=== PATIENT | male | born 1955 | race Caucasian/White ===

== ENCOUNTER 2016-07-21 23:05 | Inpatient (IN) | payer BC ==
[~2016-07-21] VITALS: Ht 182.9 cm; Wt 89.5 kg
[2016-07-22] VITALS (9 sets, daily range): BP systolic 122–151; BP diastolic 74–88; PULSE 61–79; TEMP 36.3–36.9; O2SAT 93–100; Ht 182.9 cm; Wt 89.5 kg
[2016-07-22] MEDS ORDERED: SODIUM CHLORIDE 0.9% 1000ML 1,000 ML IV STA (00:15)
[2016-07-22] MEDS ORDERED: DIAZEPAM INJ 5 MG/ML 2 ML CARP IV STA (00:15)
--- NOTE | 2016-07-22 00:17 | EMERGENCY ROOM VISIT NOTE ---
History Report prepared by Adriane: Jesus Gilliland Under the Supervision of: Dr. Juan Carlos Mustafa M.D. First contact with patient: 23:55 Chief Complaint: DIZZY Stated Complaint: VOMITING, DIZZINESS Nursing Triage Summary: Patient arrived to ED via ALS for an acute onset of dizziness. Patient reports eating dinner around 1700 today, states that after dinner he became extremley dizzy and had n/v. States that it feels as though the room is spinning, worsened with movement. Patient denies any hx of vertigo. Patient was given 5 mg of valium and 4 mg of zofran pre-hospital, which helped the s/s briefly. History of Present Illness The patient is a 60 year old male who presents to the Emergency Room with complaints of persistent dizziness that started at approximately 1730 tonight. The patient was not feeling well prior to his dinner tonight. Approximately 30 minutes after dinner tonight he became dizzy and nauseous and started vomiting. He describes the dizziness as a room-spinning sensation, which is worse when his eyes are open. Two days ago he also had intermittent episodes of dizziness that only lasted about one minute each. He also notes some shortness of breath. The patient denies chest pain, abdominal pain, leg swelling, or weakness. The patient was given Valium and Zofran prior to arrival which did offer some relief. The patient denies any recent falls or head injuries. He denies any personal or family history of blood clots. He does have a family history of stroke. The patient traveled to [facility] recently. Source of History: patient Onset: 1730 tonight Position: other (global) Quality: other (dizziness) Timing: other (persistent) Modifying Factors (Relieving): other (Zofran, Valium) Associated Symptoms: + SOB, + nausea, + vomiting, No abdominal pain, No chest pain, No weakness Review of Systems See HPI for pertinent positives & negatives. A total of 10 systems reviewed and were otherwise negative. Past Medical & Surgical Medical Problems: (1) Dizziness (2) HLD (hyperlipidemia) Family History Stroke Social History Smoking Status: Never Smoker Housing Status: lives with family Current/Historical Medications Scheduled Acyclovir (Zovirax), 200 MG PO DAILY Atorvastatin (Lipitor), 10 MG PO HS Allergies Coded Allergies: No Known Allergies (Unverified , 4/6/17) Physical Exam Vital Signs Date Time Temp Pulse Resp B/P Pulse Ox O2 Delivery O2 Flow Rate FiO2 07/22/16 01:06 52 18 142/71 100 Nasal Cannula 2.0 07/21/16 23:40 47 07/21/16 23:09 53 18 144/77 94 Room Air Physical Exam GENERAL: Patient is uncomfortable appearing and nauseous appearing and in moderate distress. HEENT: No acute trauma, normocephalic atraumatic, mucous membranes moist, no nasal congestion, no scleral icterus. Strong horizontal nystagmus that is worse to the left. NECK: No stridor, no adenopathy, no meningismus, trachea is midline. LUNGS: No dyspnea. Clear to auscultation and equal bilaterally. No wheeze, no rhonchi. HEART: Regular rate and rhythm. No murmurs, rubs, gallops appreciated. ABDOMEN: Soft, nontender, bowel sounds positive, no masses appreciated, no peritonitis. BACK: No midline tenderness, no CVA tenderness EXTREMITIES: Normal motion all extremities, no cyanosis, no edema. NEUROLOGIC: Alert and oriented, no acute motor or sensory deficits, no focal weakness, cranial nerves grossly intact. SKIN: No rash, no jaundice, no diaphoresis. Medical Decision & Procedures ER Provider Diagnostic Interpretation: X ray results are stated below per my interpretation: Chest: 1 view: No infiltrate, no effusion, normal cardiac border. Radiology results and stated below per my review and radiologist interpretation: CT Head: No acute intracranial process. Bony excrescence related to the left parietal skull. Radiologist: Avinash Kelley MD. Laboratory Results 07/21/16 23:20 Red Blood Count 4.45, Mean Corpuscular Volume 85.4, Mean Corpuscular Hemoglobin 30.8, Mean Corpuscular Hemoglobin Concent 36.1, Mean Platelet Volume 10.0, Neutrophils (%) (Auto) 59.1, Lymphocytes (%) (Auto) 32.5, Monocytes (%) (Auto) 7.0, Eosinophils (%) (Auto) 1.2, Basophils (%) (Auto) 0.0, Neutrophils # (Auto) 3.80, Lymphocytes # (Auto) 2.09, Monocytes # (Auto) 0.45, Eosinophils # (Auto) 0.08, Basophils # (Auto) 0.00 07/21/16 23:20 Test 07/21/16 23:20 White Blood Count 6.43 K/uL (4.8-10.8) Red Blood Count 4.45 M/uL (4.7-6.1) Hemoglobin 13.7 g/dL (14.0-18.0) Hematocrit 38.0 % (42-52) Mean Corpuscular Volume 85.4 fL (80-100) Mean Corpuscular Hemoglobin 30.8 pg (25-34) Mean Corpuscular Hemoglobin Concent 36.1 g/dl (32-36) Platelet Count 165 K/uL (130-400) Mean Platelet Volume 10.0 fL (7.4-10.4) Neutrophils (%) (Auto) 59.1 % Lymphocytes (%) (Auto) 32.5 % Monocytes (%) (Auto) 7.0 % Eosinophils (%) (Auto) 1.2 % Basophils (%) (Auto) 0.0 % Neutrophils # (Auto) 3.80 K/uL (1.4-6.5) Lymphocytes # (Auto) 2.09 K/uL (1.2-3.4) Monocytes # (Auto) 0.45 K/uL (0.11-0.59) Eosinophils # (Auto) 0.08 K/uL (0-0.5) Basophils # (Auto) 0.00 K/uL (0-0.2) RDW Standard Deviation 41.2 fL (36.4-46.3) RDW Coefficient of Variation 13.2 % (11.5-14.5) Immature Granulocyte % (Auto) 0.2 % Immature Granulocyte # (Auto) 0.01 K/uL (0.00-0.02) D-Dimer < 190 ug/L FEU (0-500) Anion Gap 8.0 mmol/L (3-11) Est Creatinine Clear Calc Drug Dose 77.4 ml/min Estimated GFR () 83.5 Estimated GFR (Non- 72.1 BUN/Creatinine Ratio 14.6 (10-20) Calcium Level 8.2 mg/dl (8.5-10.1) Magnesium Level 2.1 mg/dl (1.8-2.4) Troponin I < 0.015 ng/ml (0-0.045) Laboratory results as reviewed by me. Medications Administered Medications (Trade) Dose Ordered Sig/Lisa Route Start Time Stop Time Status Last Admin Dose Admin Sodium Chloride (Nss 1000ml) 1,000 ml @ 999 mls/hr Q1H1M STAT IV 07/22/16 00:15 07/22/16 01:15 DC 07/22/16 00:32 999 MLS/HR Diazepam (Valium Inj) 5 mg NOW STAT IV 07/22/16 00:15 07/22/16 00:17 DC 07/22/16 00:29 5 MG Lorazepam (Ativan Inj) 2 mg NOW STAT IV 07/22/16 01:18 07/22/16 01:19 DC 07/22/16 01:24 2 MG ECG Indication: other (dizziness) Rate (beats per minute): 53 Rhythm: sinus bradycardia Findings: no acute ischemic change, no ectopy ED Course 0007: The patient was evaluated in room B6. A complete history and physical exam was performed. 0015: Valium 5 mg IV, NSS 1000 ml @ 999 mls/hr. 0118: The patient had no improvement of his symptoms. 0118: Ativan 2 mg IV. 0120: [facility] The patient will be evaluated. 0207: The patient was sleeping and is currently in no distress. Medical Decision Differential diagnoses include Benign positional vertigo, Dehydration, Hypovolemia, Anemia, Tumor, Infection, Hypoglycemia, Electrolyte abnormalities, Cardiac sources, Intracerebral event, Toxicologic, Neurologic, as well as others were entertained. 60 yr old male arrives with severe vertiginous symptoms starting up over last few hours after dinner. Very significant nystagmus. No neuro deficits, headache, neck pain, recent trauma. Dimer negative thus I do not feel this is PE and risk of sinus thrombus unlikely. Given 2 rounds valium without improvement. Given a third round Ativan with improvement though quite somnolent. He will need to come in for intractable symptoms and further vertigo work-up. Will hold on emergent MRI as he is barely able to stay still though hopefully with Ativan will be doing better. Consults Time Called: [phone] Consulting Physician: [facility] Returned Call: [phone]: Discussed the case with Dr. Fernández, [facility]. The patient will be evaluated. Impression Primary Impression: Intractable vomiting Additional Impressions: Vertigo Nystagmus Scribe Attestation The scribe's documentation has been prepared under my direction and personally reviewed by me in its entirety. I confirm that the note above accurately reflects all work, treatment, procedures, and medical decision making performed by me. Departure Information Dispostion Being Evaluated By Hospitalist Referrals Shayne Pedroza D.O. (PCP) Patient Instructions My [facility] Problem Qualifiers Primary Impression: Intractable vomiting Vomiting type: unspecified Nausea presence: with nausea Qualified Codes: R11.2 - Nausea with vomiting, unspecified
[2016-07-22] MEDS ORDERED: ATOR10TA82 PO (00:19)
[2016-07-22] MEDS ORDERED: ACYC-57 PO (00:20)
[2016-07-22 00:26] LABS: COMPLETE YES; EOS % 1.2 %; IG% 0.2 %; LYMPH % 32.5 %; LYMPH ABS # 2.09 K/uL (1.2-3.4); MEAN CELL VOLUME 85.4 fL (80-100); MEAN CORPUSCULAR HEMOGLOBIN 30.8 pg (25-34); MEAN CORPUSCULAR HGB CONC 36.1 g/dl (32-36); NEUT % 59.1 %; PLATELET COUNT 165 K/uL (130-400); RED BLOOD COUNT 4.45 M/uL (4.7-6.1); WHITE BLOOD COUNT 6.43 K/uL (4.8-10.8)
[2016-07-22 00:32] LABS: BLOOD UREA NITROGEN 16 mg/dl (7-18); BUN/CREATININE RATIO 14.6 (10-20); CALCIUM 8.2 mg/dl (8.5-10.1); CARBON DIOXIDE 29 mmol/L (21-32); CHLORIDE 102 mmol/L (98-107); GLUCOSE 117 mg/dl (70-99); POTASSIUM 3.4 mmol/L (3.5-5.1); SODIUM 139 mmol/L (136-145)
[2016-07-22] MEDS ORDERED: LORAZEPAM 2 MG/ML 1 ML VIAL IV STA (01:18)
[2016-07-22 01:41] LABS: MAGNESIUM 2.1 mg/dl (1.8-2.4)
[2016-07-22] MEDS ORDERED: ONDANSETRON INJ 2 MG/ML 2 ML VIAL IV PRN (01:45)
[2016-07-22] MEDS ORDERED: ALUMINUM/MAGNESIUM/SIMETH (MAALOX MAX) 30 ML UDC PO PRN (01:45)
[2016-07-22] MEDS ORDERED: NITROGLYCERIN 0.4 MG SL PER TAB CHARGE SL PRN (01:45)
[2016-07-22] MEDS ORDERED: POTASSIUM CHLR 20 MEQ / WTR 20 MEQ in PREMIXED WATER 100 ML IV STA (01:45)
[2016-07-22] MEDS ORDERED: POLYETHYLENE (MIRALAX) 17 GM PACK PO PRN (01:45)
[2016-07-22] MEDS ORDERED: ACETAMINOPHEN 325 MG TAB PO PRN (01:45)
[2016-07-22] MEDS ORDERED: MAGNESIUM HYDROXIDE SUSP 30 ML UDC PO PRN (01:45)
--- NOTE | 2016-07-22 01:46 | History and Physical ---
History & Physical Date & Time of Service: Jul 22, 2016 at 01:46. The date of admission was 07/21/2016 Chief Complaint: Vomiting, Dizziness Primary Care Physician: Shayne Pedroza D.O. History of Present Illness Source: family This is a 60 y/o M with a pmh of hyperlipidemia who presents with a few day history of intermittent dizziness that has gotten progressively worse. The patient was given Ativan and Valium, in the ED which had put him to sleep. History is entirely from the patient's . Tonight, she states that he started having more persistent dizziness. The patient had a beer early in the evening and started feeling nauseated as well as started getting a headache. A couple of hours later, he and his went out to [place] for dinner. He had Duck and wild mushroom soup. Shortly after he started becoming dizzy again. He described the sensation as the room spinning. On their way home, he had violent vomiting about 5 times. She states that she was concerned about the food he had eaten because it was not the right temperature. Their friend who was at the dinner had the same meal and seemed to be fine after wards. She reports that he has had some ringing in his ears over the last few days with intermittent episodes of dizziness, lasting a couple of minutes that he didn't make much of. His symptoms are not positional. He recently travelled to [facility] over spring but seemed to do fine during after the trip. The patient also does have some pre-existing hearing loss that he wears hearing aids for. As far as she knows, there has been no significant change in hearing Denies chest pain, shortness of breath, vision changes, numbness/tingling, urinary/bowel incontinence, weakness of extremities, dysphagia, pre-syncope, syncope Denies a family history of blood clots. There is a family history of stroke and melanoma. Past Medical/Surgical History Medical Problems: (1) HLD (hyperlipidemia) Status: Chronic Family History Stroke Social History Smoking Status: Never Smoker Alcohol Use: occasionally Drug Use: none Marital Status: Housing status: lives with family Occupational Status: employed Allergies Coded Allergies: No Known Allergies (Unverified , 07/22/16) Home Medications Scheduled Acyclovir (Zovirax), 200 MG PO DAILY Aspirin (Aspirin 81), 1 TAB PO DAILY Atorvastatin (Lipitor), 10 MG PO HS Scheduled PRN Meclizine HCl (Meclizine 25), 25 MG PO TID PRN for Dizziness or Vertigo Review of Systems As per Constitutional: No chills, No fever Respiratory: No cough, No dyspnea at rest, No dyspnea on exertion, No shortness of breath, No sputum, No wheezing Cardiovascular: No chest pain Abdomen: + nausea, + vomiting, No constipation, No diarrhea, No pain Genitourinary - Male: No dysuria, No hematuria, No urinary frequency, No urinary urgency Neurologic: + vertigo, No balance problems, No memory loss, No numbness/ tingling, No paralysis, No weakness Physical Exam Vital Signs Date Time Temp Pulse Resp B/P Pulse Ox O2 Delivery O2 Flow Rate FiO2 07/22/16 01:06 52 18 142/71 100 Nasal Cannula 2.0 07/21/16 23:40 47 07/21/16 23:09 53 18 144/77 94 Room Air Respiratory/Chest: lungs clear, normal breath sounds, no respiratory distress, no accessory muscle use Cardiovascular: regular rate, rhythm, no edema, no murmur Abdomen/GI: normal bowel sounds, non tender, soft Extremities/Musculoskelatal: no calf tenderness, no pedal edema Neurological exam could not be completed at this time. But as per ER physician, patient did have significant horizontal nystagmus, cranial nerves intact; normal neuro exam otherwise. Diagnostics Laboratory Results Results Past 24 Hours Test 07/21/16 23:20 Range/Units White Blood Count 6.43 4.8-10.8 K/uL Red Blood Count 4.45 4.7-6.1 M/uL Hemoglobin 13.7 14.0-18.0 g/dL Hematocrit 38.0 42-52 % Mean Corpuscular Volume 85.4 80-100 fL Mean Corpuscular Hemoglobin 30.8 25-34 pg Mean Corpuscular Hemoglobin Concent 36.1 32-36 g/dl Platelet Count 165 130-400 K/uL Mean Platelet Volume 10.0 7.4-10.4 fL Neutrophils (%) (Auto) 59.1 % Lymphocytes (%) (Auto) 32.5 % Monocytes (%) (Auto) 7.0 % Eosinophils (%) (Auto) 1.2 % Basophils (%) (Auto) 0.0 % Neutrophils # (Auto) 3.80 1.4-6.5 K/uL Lymphocytes # (Auto) 2.09 1.2-3.4 K/uL Monocytes # (Auto) 0.45 0.11-0.59 K/uL Eosinophils # (Auto) 0.08 0-0.5 K/uL Basophils # (Auto) 0.00 0-0.2 K/uL RDW Standard Deviation 41.2 36.4-46.3 fL RDW Coefficient of Variation 13.2 11.5-14.5 % Immature Granulocyte % (Auto) 0.2 % Immature Granulocyte # (Auto) 0.01 0.00-0.02 K/uL D-Dimer < 190 0-500 ug/L FEU Sodium Level 139 136-145 mmol/L Potassium Level 3.4 3.5-5.1 mmol/L Chloride Level 102 98-107 mmol/L Carbon Dioxide Level 29 21-32 mmol/L Anion Gap 8.0 3-11 mmol/L Blood Urea Nitrogen 16 7-18 mg/dl Creatinine 1.10 0.60-1.40 mg/dl Est Creatinine Clear Calc Drug Dose 77.4 ml/min Estimated GFR () 83.5 Estimated GFR (Non- 72.1 BUN/Creatinine Ratio 14.6 10-20 Random Glucose 117 70-99 mg/dl Calcium Level 8.2 8.5-10.1 mg/dl Magnesium Level 2.1 1.8-2.4 mg/dl Troponin I < 0.015 0-0.045 ng/ml Impression Assessment and Plan This is a 60 y/o M who presents with Dizziness/vertigo like symptoms as well as Nausea / vomiting. Etiologies considered include Vestibular neuritis, labrynthitis, CVA, TIA, BPPV, toxin induced gastroenteritis, acoustic neuroma etc. Dizziness Head CT negative for acute hemorrhage Will do an MRI to rule out any masses or CVA Patient symptoms had improved and was sound asleep after ativan and valium- Will order meclizine for if symptoms recur Could also consider steroids if symptoms persist Neurochecks Trend troponin x 3 Check lipid profile/A1c Hypokalemia replaced with 20 meq kcl Hyperlipidemia Continue lipitor DVT proph: lovenox VTE Prophylaxis VTE Risk Assessment Done? Y/N: Yes Risk Level: Moderate Assessment and Plan Attending Addendum: I have physically seen and examined this patient, have directed their medical care, have supervised the medical residents activities, and agree with the H&P as noted above, with the following changes: NONE The patient is awake, well-developed and adequately nourished, alert and oriented 3, normocephalic and atraumatic, lying in bed and in no acute distress. HEENT--PERRL, EOMI, mucous membranes and oropharynx dry. Neck--supple, no JVD or bruits, thyroid normal, trachea midline, no adenopathy. Heart--normal S1 and S2, no extra beats, no murmurs, rubs or gallops. Lungs--clear bilaterally with good air movement, no respiratory distress, no accessory muscle use. Abdomen--normal bowel sounds and soft, nontender and nondistended, no hernias or masses, no organomegaly. Extremities--no cyanosis, clubbing or edema. There are good distal pulses b/l. Dermatologic--normal skin turgor, normal color, warm and dry, no abnormal lymph nodes, no rash. Neurologic--cranial nerves II through XII grossly intact, motor and sensory examination normal. Rheumatologic--normal range of motion, nontender, muscles and joints. Psychiatric--normal affect. Assessment and Plan: Intractable dizziness--CT of the head was negative. We'll order an MRI of the brain combo. Continue Ativan and meclizine IV when necessary for symptom relief. As a backup treatment IV Decadron may be of value. Neuro checks every 4 hours for the next 24 hours. The patient will be admitted to the telemetry unit for serial cardiac enzymes, cardiac rhythm monitoring and a 2-D echocardiogram with Dopplers. Hypokalemia--supplement orally, will repeat BMP and magnesium level in a.m. Hyperlipidemia--continue atorvastatin 10 mg by mouth at bedtime.
[2016-07-22] MEDS ORDERED: POTASSIUM CHLORIDE 10 MEQ / 100ML WTR IV ONE (02:12)
[2016-07-22] MEDS: MECLIZINE HCL 25 MG TAB PO PRN ×2 (04:59→17:00)
[2016-07-22 06:34] LABS: INR 1.1 (0.9-1.1); PROTHROMBIN TIME (PATIENT) 11.7 SECONDS (9.0-12.0)
--- NOTE | 2016-07-22 06:55 | DIAGNOSTIC IMAGING REPORT ---
HEAD CT NONCONTRAST CT DOSE: 614.27 mGy.cm HISTORY: Mental status change new onset vertigo TECHNIQUE: Multiaxial CT images of the head were performed without the use of intravenous contrast. Comparison: None. Findings: The paranasal sinuses and mastoid air cells are clear. The calvarium and skull base are intact. The ventricles and sulci are within normal limits. There is no mass, hematoma, midline shift, or acute infarct. Impression: No acute intracranial abnormality. Electronically signed by: Jim Khoury M.D. 07/22/2016 6:53 AM Dictated Date/Time: 07/22/2016 6:53 AM
[2016-07-22 07:02] LABS: CHOLESTEROL 123 mg/dl (0-200); CHOLESTEROL/HDL RATIO 2.5; HDL CHOLESTEROL 50 mg/dl; LDL CHOLESTEROL CALCULATED 66 mg/dl; TRIGLYCERIDES 35 mg/dl (0-150); VERY LOW DENSITY LIPOPROT CALC 7 mg/dl
[2016-07-22 07:47] LABS: BUN/CREATININE RATIO 15.2 (10-20); CALCIUM 8.2 mg/dl (8.5-10.1); CREATININE 0.9 mg/dl (0.60-1.40); MAGNESIUM 2.2 mg/dl (1.8-2.4); PHOSPHORUS 2.8 mg/dl (2.5-4.9); POTASSIUM 3.9 mmol/L (3.5-5.1)
[2016-07-22] MEDS: ENOXAPARIN 40 MG/0.4 ML SYR SC SCH (08:03)
--- NOTE | 2016-07-22 08:06 | DIAGNOSTIC IMAGING REPORT ---
CHEST ONE VIEW PORTABLE HISTORY: Vertigo. Short of breath. COMPARISON: None. FINDINGS: The heart is normal in size. No pleural effusions. No pneumothorax. Mild right basilar interstitial thickening may be chronic or due to dependent change. Otherwise, the lungs are clear. IMPRESSION: No acute process. Electronically signed by: Everett Valladares M.D. 07/22/2016 8:03 AM Dictated Date/Time: 07/22/2016 8:02 AM
[2016-07-22] MEDS ORDERED: ONDANSETRON INJ 2 MG/ML 2 ML VIAL IV ONE (08:45)
[2016-07-22 08:50] LABS: ESTIMATED AVERAGE GLUCOSE 111 mg/dl; HA1C FLAG Normal (Normal)
[2016-07-22 09:00] LABS: HEMATOCRIT 37.2 % (42-52); MEAN CELL VOLUME 84.9 fL (80-100); MEAN CORPUSCULAR HEMOGLOBIN 30.8 pg (25-34); MEAN CORPUSCULAR HGB CONC 36.3 g/dl (32-36); MEAN PLATELET VOLUME 10.3 fL (7.4-10.4); PLATELET COUNT 147 K/uL (130-400); RED BLOOD COUNT 4.38 M/uL (4.7-6.1); WHITE BLOOD COUNT 7.99 K/uL (4.8-10.8)
[2016-07-22] MEDS ORDERED: PROMETHAZINE HCL INJ 25 MG in SODIUM CHLORIDE 0.9% 50ML 50 ML IV PRN (09:00)
[2016-07-22] MEDS ORDERED: GADAVIST IV PRN (12:00)
--- NOTE | 2016-07-22 12:26 | DIAGNOSTIC IMAGING REPORT ---
Brain MRI WITH AND WITHOUT CONTRAST HISTORY: dizziness TECHNIQUE: Multiplanar multisequence MRI of the brain was performed both before and after the intravenous administration of contrast. COMPARISON STUDY: Head CT 07/22/2016. FINDINGS: No areas of restricted diffusion to suggest acute infarction. There is a partially empty sella. The remaining midline structures are intact. Small focal area of T2 hyperintensity seen within the left high convexity. 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 This extends to the cortex and subcortical white matter.. There is no mass, hematoma, midline shift. The ventricles are normal in size. The paranasal sinuses and right mastoid air cells are clear. There are few opacified left mastoid air cells. No abnormal enhancement. IMPRESSION: 1. No acute intracranial abnormality. 2. Small focal area of T2 hyperintensity within the left high convexity which favors an old small infarct. Electronically signed by: Everett Valladares M.D. 07/22/2016 12:24 PM Dictated Date/Time: 07/22/2016 12:09 PM
[2016-07-22] MEDS: D5NSS + 20MEQ KCL 1,000 ML IV SCH (15:58)
--- NOTE | 2016-07-22 16:53 | ECHOCARDIOGRAM REPORT ---
*NOTICE TO RECEIVING CONSTITUTION PARTY AGENCY This information is strictly Confidential and protected under [place] law. [place] law prohibits you from making any further disclosure of this information unless further disclosure is expressly permitted by the written consent of the person to whom it pertains or is authorized by law. A general authorization for the release of medical or other information is not sufficient for this purpose. Hospital accepts no responsibility if the information is made available to any other person, INCLUDING THE PATIENT. Interpretation Summary * Name: KYLE PHAN Study Date: 07/22/2016 02:15 PM BP: 147/83 mmHg * Patient Location: C.2T\S\E216\S\1 HR: 64 * : 1955 (M/d/yyyy) Gender: Male Height: 72 in * Age: 60 yrs Ethnicity: CA Weight: 191 lb * Ordering Physician: Lenora Delacruz * Performed By: Odilia Pierre * * Reason For Study: DIZZINESS * BSA: 2.1 m2 * -- Conclusions -- * 1. Normal left ventricular size with hyperdynamic systolic function. EF 65-70%. No left ventricular hypertrophy. Type I diastolic dysfunction. * 2. There is mild mitral regurgitation. * 3. Ascending aorta may be minimally dilated. * 4. Normal estimated right ventricular systolic pressure; RVSP 24 mmHg. * 5. Compared to prior study on 10/02/2010, LV systolic function is now hyperdynamic. Procedure Details * A complete two-dimensional transthoracic echocardiogram was performed (2D, M-mode, Doppler and color flow Doppler). Left Ventricle * Normal left ventricular size with hyperdynamic systolic function. EF 65-70%. No left ventricular hypertrophy. Type I diastolic dysfunction. Right Ventricle * The right ventricle is normal in size and function. * The right ventricular systolic function is normal as assessed by tricuspid annular plane systolic excursion (TAPSE) (normal >1.5 cm). Atria * The left atrial size is normal. * Right atrial size is normal. * There is no evidence of atrial septal defect, but resolution does not allow assessment for a patent foramen ovale. Mitral Valve * The mitral valve is normal in structure and function. * There is no mitral valve stenosis. * There is mild mitral regurgitation. Tricuspid Valve * The tricuspid valve is not well visualized, but is grossly normal. * There is no tricuspid stenosis. * There is trace tricuspid regurgitation. Aortic Valve * The aortic valve is normal in structure and function. * The aortic valve is trileaflet. * No hemodynamically significant valvular aortic stenosis. * Trace aortic regurgitation. Pulmonic Valve * The pulmonic valve is not well seen, but is grossly normal. * There is no pulmonic valvular stenosis. * Mild pulmonic valvular regurgitation. Great Vessels * The aortic root is normal size. * Normal pulmonary venous flow pattern. Pericardium/Pleural * There is no pericardial effusion. Great Vessels * Normal inferior vena cava size and collapsability with sniff indicates a normal right atrial pressure of 3 mmHg Left Ventricular Diastolic Function * Grade I diastolic dysfunction, (abnormal relaxation pattern). MMode 2D Measurements and Calculations IVSd 1.1 cm IVSs 1.7 cm LVIDd 4.9 cm LVIDs 2.8 cm LVPWd 0.82 cm LVPWs 2.0 cm IVS/LVPW 1.3 FS 42.7 % EDV(Teich) 115.3 ml ESV(Teich) 30.5 ml EF(Teich) 73.5 % EDV(cubed) 121.0 ml ESV(cubed) 22.8 ml EF(cubed) 81.1 % % IVS thick 54.2 % % LVPW thick 140.6 % LV mass(C)d 166.6 grams LV mass(C)dI 79.7 grams/m\S\2 LV mass(C)s 206.7 grams LV mass(C)sI 98.9 grams/m\S\2 SV(Teich) 84.8 ml SI(Teich) 40.6 ml/m\S\2 SV(cubed) 98.2 ml SI(cubed) 47.0 ml/m\S\2 Ao root diam 3.7 cm Ao root area 10.6 cm\S\2 ACS 1.8 cm LA dimension 4.5 cm asc Aorta Diam 3.7 cm LA/Ao 1.2 LVOT diam 2.2 cm LVOT area 3.6 cm\S\2 LVAd ap4 36.1 cm\S\2 LVLd ap4 8.8 cm EDV(MOD-sp4) 118.9 ml EDV(sp4-el) 125.6 ml LVAs ap4 19.3 cm\S\2 LVLs ap4 7.4 cm ESV(MOD-sp4) 42.9 ml ESV(sp4-el) 43.2 ml EF(MOD-sp4) 63.9 % EF(sp4-el) 65.6 % LVAd ap2 31.9 cm\S\2 LVLd ap2 8.7 cm EDV(MOD-sp2) 101.2 ml EDV(sp2-el) 99.4 ml LVAs ap2 16.4 cm\S\2 LVLs ap2 7.5 cm ESV(MOD-sp2) 32.7 ml ESV(sp2-el) 30.3 ml EF(MOD-sp2) 67.7 % EF(sp2-el) 69.5 % LVLd %diff -1.94 % EDV(MOD-bp) 110.9 ml LVLs %diff 1.6 % ESV(MOD-bp) 32.4 ml EF(MOD-bp) 70.8 % SV(MOD-sp4) 76.0 ml SI(MOD-sp4) 36.4 ml/m\S\2 SV(MOD-sp2) 68.5 ml SI(MOD-sp2) 32.8 ml/m\S\2 SV(MOD-bp) 78.5 ml SI(MOD-bp) 37.6 ml/m\S\2 SV(sp4-el) 82.4 ml SI(sp4-el) 39.5 ml/m\S\2 SV(sp2-el) 69.0 ml SI(sp2-el) 33.0 ml/m\S\2 Doppler Measurements and Calculations MV E max ross 64.9 cm/sec MV A max ross 89.1 cm/sec MV E/A 0.73 MV dec time 0.30 sec Ao V2 max 121.0 cm/sec Ao max PG 5.9 mmHg Ao max PG (full) 0.10 mmHg MILY(V,A) 3.6 cm\S\2 MILY(V,D) 3.6 cm\S\2 AI max ross 313.2 cm/sec AI max PG 39.2 mmHg AI dec slope 134.5 cm/sec\S\2 AI P1/2t 681.9 msec LV V1 max PG 5.8 mmHg LV V1 max 119.9 cm/sec MR max ross 472.1 cm/sec MR max PG 89.3 mmHg TV E max ross 41.0 cm/sec PA V2 max 59.6 cm/sec PA max PG 1.4 mmHg PI end-d ross 89.5 cm/sec TR max ross 227.2 cm/sec RVSP(TR) 23.6 mmHg RAP systole 3.0 mmHg
--- NOTE | 2016-07-22 18:56 | Family Medicine Progress Note ---
Progress Note Date of Service Jul 22, 2016. Subjective Pt evaluation today including: conversation w/ patient, physical exam, chart review, lab review Pain: none PO Intake: poor The patient is quite sleepy this morning when I came to the room Noted that he gotten diazepam Patient was awoken and could give me some element of the history Describes "vibration in both ears" for the past 2 days; yesterday started noticing dizziness, which she describes as spinning of the room around him. He was out at dinner, and had beer which made him feel worse and he proceeded to have 5 bouts of emesis which prompted his arrival to the hospital. He denies any ringing in the ears denies hearing loss denies ear pain. Did not have any issues with balance or stability. He has never had these type symptoms before. They're not associated with head position. He has not had any blurring of his vision or double vision. All Other Systems: Reviewed and Negative Medications Current Inpatient Medications Medications (Trade) Dose Ordered Sig/Lisa Route Start Time Stop Time Status Last Admin Dose Admin Enoxaparin Sodium (Lovenox Inj) 40 mg Q24H SC 07/22/16 09:00 08/21/16 08:59 07/22/16 08:03 40 MG Acetaminophen (Tylenol Tab) 650 mg Q4H PRN PO 07/22/16 01:45 08/21/16 01:44 Al Hydrox/Mg Hydrox/Simethicone (Maalox Max Susp) 15 ml Q4H PRN PO 07/22/16 01:45 08/21/16 01:44 Magnesium Hydroxide (Milk Of Magnesia Susp) 30 ml Q12H PRN PO 07/22/16 01:45 08/21/16 01:44 Ondansetron HCl (Zofran Inj) 4 mg Q6H PRN IV 07/22/16 01:45 08/21/16 01:44 07/22/16 08:06 4 MG Nitroglycerin (Nitrostat Tab) 0.4 mg UD PRN SL 07/22/16 01:45 08/21/16 01:44 Polyethylene (Miralax Powder Packet) 17 gm DAILY PRN PO 07/22/16 01:45 08/21/16 01:44 Atorvastatin Calcium (Lipitor Tab) 10 mg HS PO 07/22/16 21:00 08/21/16 20:59 Meclizine HCl 25 mg 25 mg TID PRN PO 07/22/16 02:00 08/21/16 01:59 07/22/16 17:00 25 MG Promethazine HCl/ Sodium Chloride (Phenergan Inj/ Nss 50ml) 51 ml @ 204 mls/hr Q6H PRN IV 07/22/16 09:00 08/21/16 08:59 07/22/16 10:32 204 MLS/HR Gadobutrol 8.5 mmol 8.5 mmol UD PRN IV 07/22/16 12:00 07/26/16 11:59 Potassium Chloride/Dextrose/ Sod Cl (D5nss + 20meq KCl) 1,000 ml @ 125 mls/hr Q8H IV 07/22/16 15:30 08/21/16 15:14 07/22/16 15:58 125 MLS/HR Objective Vital Signs Date Time Temp Pulse Resp B/P Pulse Ox O2 Delivery O2 Flow Rate FiO2 07/22/16 15:32 36.3 63 20 123/74 97 Room Air 07/22/16 12:00 Room Air 07/22/16 11:58 36.6 64 14 147/83 97 Room Air 07/22/16 08:01 36.4 70 14 137/78 97 Room Air 07/22/16 08:00 Room Air 07/22/16 04:14 36.4 79 18 129/75 96 Room Air 07/22/16 04:00 100 07/22/16 01:57 61 18 122/72 100 07/22/16 01:06 52 18 142/71 100 Nasal Cannula 2.0 07/21/16 23:40 47 07/21/16 23:09 53 18 144/77 94 Room Air Physical Exam General Appearance: WD/WN, no apparent distress Eyes: normal inspection, EOMI ENT: hearing grossly normal, pharynx normal, + pertinent finding (no vesicles on the tympanic membrane) Neck: supple, no adenopathy, no JVD Respiratory/Chest: lungs clear, no respiratory distress Cardiovascular: regular rate, rhythm, no gallop, no murmur Abdomen: normal bowel sounds, non tender, soft Extremities: + pertinent finding (no asymmetry, 5 out of 5 strength bilaterally in both upper and lower extremities) 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, no motor/sensory deficits, alert, oriented x 3, + pertinent finding (leftward nystagmus) Skin: normal color, warm/dry, no rash Lymphatic: no adenopathy Laboratory Results Last 24 Hours Test 07/21/16 23:20 07/22/16 05:57 07/22/16 12:25 White Blood Count 6.43 K/uL 7.99 K/uL Red Blood Count 4.45 M/uL 4.38 M/uL Hemoglobin 13.7 g/dL 13.5 g/dL Hematocrit 38.0 % 37.2 % Mean Corpuscular Volume 85.4 fL 84.9 fL Mean Corpuscular Hemoglobin 30.8 pg 30.8 pg Mean Corpuscular Hemoglobin Concent 36.1 g/dl 36.3 g/dl Platelet Count 165 K/uL 147 K/uL Mean Platelet Volume 10.0 fL 10.3 fL Neutrophils (%) (Auto) 59.1 % Lymphocytes (%) (Auto) 32.5 % Monocytes (%) (Auto) 7.0 % Eosinophils (%) (Auto) 1.2 % Basophils (%) (Auto) 0.0 % Neutrophils # (Auto) 3.80 K/uL Lymphocytes # (Auto) 2.09 K/uL Monocytes # (Auto) 0.45 K/uL Eosinophils # (Auto) 0.08 K/uL Basophils # (Auto) 0.00 K/uL RDW Standard Deviation 41.2 fL 41.4 fL RDW Coefficient of Variation 13.2 % 13.3 % Immature Granulocyte % (Auto) 0.2 % Immature Granulocyte # (Auto) 0.01 K/uL D-Dimer < 190 ug/L FEU Sodium Level 139 mmol/L 141 mmol/L Potassium Level 3.4 mmol/L 3.9 mmol/L Chloride Level 102 mmol/L 105 mmol/L Carbon Dioxide Level 29 mmol/L 28 mmol/L Anion Gap 8.0 mmol/L 8.0 mmol/L Blood Urea Nitrogen 16 mg/dl 14 mg/dl Creatinine 1.10 mg/dl 0.90 mg/dl Est Creatinine Clear Calc Drug Dose 77.4 ml/min 94.6 ml/min Estimated GFR () 83.5 106.5 Estimated GFR (Non- 72.1 91.9 BUN/Creatinine Ratio 14.6 15.2 Random Glucose 117 mg/dl 135 mg/dl Calcium Level 8.2 mg/dl 8.2 mg/dl Magnesium Level 2.1 mg/dl 2.2 mg/dl Troponin I < 0.015 ng/ml < 0.015 ng/ml < 0.015 ng/ml Prothrombin Time 11.7 SECONDS Prothromb Time International Ratio 1.1 Estimated Average Glucose 111 mg/dl Hemoglobin A1c 5.5 % Phosphorus Level 2.8 mg/dl Triglycerides Level 35 mg/dl Cholesterol Level 123 mg/dl HDL Cholesterol 50 mg/dl LDL Cholesterol, Calculated 66 mg/dl VLDL Cholesterol, Calculated 7 mg/dl Cholesterol/HDL Ratio 2.5 Assessment and Plan 60-year-old male, with 3 days of new onset vertigo. Is noted to have leftward nystagmus on examination, the rest of the neurological examination is otherwise unremarkable. Differential diagnosis for his presentation includes: BPPV, acoustic neuroma, labyrinthitis, vestibular neuritis, CVA, orthostatic hypotension, seizure, cardiac arrhythmia Our plan for him is as follows: Dizziness - Improving over the course the day today. 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, and the left high convexity - No arrhythmias on telemetry; normal sinus rhythm - Echocardiogram grossly normal; EF 65-70% with grade 1 diastolic dysfunction - With evidence of old infarct, patient may benefit from an outpatient neurological follow-up - Continue meclizine when necessary Herpes simplex - Patient on suppressive therapy at home - Tympanic membranes were clear and there is no evidence that symptoms have been caused by viral breakout in the in her ear - Continue acyclovir prophylactic dosing Hyperlipidemia - Continue atorvastatin DVT prophylaxis - Continue Lovenox Disposition - Patient continues to require overnight stay for decrease in by mouth intake - We'll reassess clinically tomorrow if patient requires additional physical therapy - Ultimately anticipate discharge home Reviewed: Pt Seen/Exam by Me History seen multiple times through the day. very nauseous and dizzi this morning. later in the day - much improved but still very dizzi with ambulation and vision not clear. Constitutional: denies: fever Respiratory: negative: short of breath Cardiovascular: denies chest pain General Appearance: no apparent distress Respiratory: lungs clear, no respiratory distress Cardiovascular: regular rate, rhythm Neurologic/Psychiatric: no motor/sensory deficits, alert, normal mood/affect, oriented x 3, other (unstable with gait. lateral nystagmus +) Skin Characteristics: warm/dry Assessment/Plan I have reviewed the medical record and performed a history and physical examination of this patient today. I have discussed the case with Dr. Liu. The above note reflects my findings, conclusions, and recommendations.
[2016-07-22] MEDS: ATORVASTATIN 10 MG TAB PO SCH (20:52)
--- NOTE | 2016-07-22 22:40 | DIAGNOSTIC IMAGING REPORT ---
ULTRASOUND OF THE CAROTID ARTERIES CLINICAL HISTORY: dizziness COMPARISON STUDY: None. TECHNIQUE: Real-time, grayscale, and color Doppler sonography of the carotid arteries was performed. Imaging reviewed in the transverse and longitudinal planes. NASCET criteria was utilized for stenosis calcification. FINDINGS: There is minor atherosclerotic plaque present . The peak systolic velocity within the right internal carotid artery is 58 cm/sec. The systolic velocity ratio of right internal to common carotid artery is 0.6. The peak systolic velocity within the left internal carotid artery is 50 cm/sec. The systolic velocity ratio left internal to common carotid artery is 0.4. Antegrade flow is seen in the vertebral arteries. The external carotid arteries are patent. Blood pressure in the right arm measured 137 mm/Hg. Blood pressure in the left arm measured 130 mm/Hg. IMPRESSION: No evidence of hemodynamically significant carotid stenosis. Electronically signed by: Aravind Briones M.D. 07/22/2016 10:38 PM Dictated Date/Time: 07/22/2016 10:37 PM
[2016-07-23] MEDS: D5NSS + 20MEQ KCL 1,000 ML IV SCH ×3 (01:42→16:33)
[2016-07-23 03:47] VITALS: BP 125/74; PULSE 64; TEMP 36.8; O2SAT 95
[2016-07-23 07:11] LABS: HEMATOCRIT 37.9 % (42-52); MEAN CELL VOLUME 85.6 fL (80-100); MEAN CORPUSCULAR HEMOGLOBIN 29.6 pg (25-34); MEAN CORPUSCULAR HGB CONC 34.6 g/dl (32-36); PLATELET COUNT 169 K/uL (130-400); RED BLOOD COUNT 4.43 M/uL (4.7-6.1); WHITE BLOOD COUNT 9.82 K/uL (4.8-10.8)
[2016-07-23 07:20] VITALS: BP 146/81; PULSE 59; TEMP 36.5; O2SAT 20
[2016-07-23 07:42] LABS: BUN/CREATININE RATIO 12.3 (10-20); CALCIUM 8.1 mg/dl (8.5-10.1); POTASSIUM 3.8 mmol/L (3.5-5.1)
[2016-07-23] MEDS: MECLIZINE HCL 25 MG TAB PO PRN (08:01)
[2016-07-23] MEDS: ENOXAPARIN 40 MG/0.4 ML SYR SC SCH (08:03)
--- NOTE | 2016-07-23 08:47 | DIAGNOSTIC IMAGING REPORT ---
RIGHT FINGER(S) MIN 2 VIEWS ROUTINE CLINICAL HISTORY: right ring finger trauma; rule-out avulsion fracture Right COMPARISON: None. DISCUSSION: Nondisplaced cortical fracture distal aspect proximal phalanx right fourth finger. No evidence of dislocation. Mild soft tissue edema. IMPRESSION: Nondisplaced cortical fracture distal aspect proximal phalanx right fourth finger Electronically signed by: Jim Khoury M.D. 07/23/2016 8:45 AM Dictated Date/Time: 07/23/2016 8:43 AM
[2016-07-23 12:47] VITALS: BP 144/83; PULSE 61; TEMP 36.8; O2SAT 98
[2016-07-23] MEDS ORDERED: ASPIRIN 81 MG ECTAB PO ONE (13:05)
--- NOTE | 2016-07-23 14:08 | Family Medicine Progress Note ---
Progress Note Date of Service Jul 23, 2016. Subjective Pt evaluation today including: conversation w/ patient, physical exam, chart review, lab review Pain: none PO Intake: good Voiding: no voiding problems, no incontinence The patient notes feeling much better today. Slept really well States that when he is on his feet, still feels a little bit unsteady, but is does not feel like he would fall. Has been ambulating to the bathroom overnight Still feels that he gets a little bit of double vision, and has having some difficulty reading Dizziness is much improved but still somewhat persistent. Very concerned about how long this will continue. The patient also notes that he jammed his right ring finger recently and since then has been having difficulty with extending the DIP. Denies stiffness, denies swelling, denies pain with palpation. Neurologic: + problem reported (diplopia, difficulty reading) All Other Systems: Reviewed and Negative Medications Current Inpatient Medications Medications (Trade) Dose Ordered Sig/Lisa Route Start Time Stop Time Status Last Admin Dose Admin Enoxaparin Sodium (Lovenox Inj) 40 mg Q24H SC 07/22/16 09:00 08/21/16 08:59 07/23/16 08:03 40 MG Acetaminophen (Tylenol Tab) 650 mg Q4H PRN PO 07/22/16 01:45 08/21/16 01:44 Al Hydrox/Mg Hydrox/Simethicone (Maalox Max Susp) 15 ml Q4H PRN PO 07/22/16 01:45 08/21/16 01:44 Magnesium Hydroxide (Milk Of Magnesia Susp) 30 ml Q12H PRN PO 07/22/16 01:45 08/21/16 01:44 Ondansetron HCl (Zofran Inj) 4 mg Q6H PRN IV 07/22/16 01:45 08/21/16 01:44 07/22/16 08:06 4 MG Nitroglycerin (Nitrostat Tab) 0.4 mg UD PRN SL 07/22/16 01:45 08/21/16 01:44 Polyethylene (Miralax Powder Packet) 17 gm DAILY PRN PO 07/22/16 01:45 08/21/16 01:44 Atorvastatin Calcium (Lipitor Tab) 10 mg HS PO 07/22/16 21:00 08/21/16 20:59 07/22/16 20:52 10 MG Meclizine HCl 25 mg 25 mg TID PRN PO 07/22/16 02:00 08/21/16 01:59 07/23/16 08:01 25 MG Promethazine HCl/ Sodium Chloride (Phenergan Inj/ Nss 50ml) 51 ml @ 204 mls/hr Q6H PRN IV 07/22/16 09:00 08/21/16 08:59 07/22/16 10:32 204 MLS/HR Gadobutrol 8.5 mmol 8.5 mmol UD PRN IV 07/22/16 12:00 07/26/16 11:59 Potassium Chloride/Dextrose/ Sod Cl (D5nss + 20meq KCl) 1,000 ml @ 125 mls/hr Q8H IV 07/22/16 15:30 08/21/16 15:14 07/23/16 08:01 125 MLS/HR Aspirin (Ecotrin Tab) 81 mg QAM PO 07/24/16 09:00 08/23/16 08:59 Objective Vital Signs Date Time Temp Pulse Resp B/P Pulse Ox O2 Delivery O2 Flow Rate FiO2 07/23/16 12:47 36.8 61 20 144/83 98 Room Air 07/23/16 12:00 Room Air 07/23/16 08:00 Room Air 07/23/16 07:20 36.5 59 20 146/81 20 Room Air 07/23/16 04:00 Room Air 07/23/16 03:47 36.8 64 18 125/74 95 Room Air 07/23/16 00:00 Room Air 07/22/16 23:43 36.9 64 18 122/74 93 Room Air 07/22/16 20:00 95 Room Air 07/22/16 19:27 36.6 61 18 151/88 95 Room Air 07/22/16 16:00 97 Room Air 07/22/16 15:32 36.3 63 20 123/74 97 Room Air Physical Exam General Appearance: WD/WN, no apparent distress Eyes: normal inspection, + pertinent finding (nystagmus with leftward eye movement; notes double vision with eyes in left upper oblique position; cannot state if images are vertically or horizontally juxtaposed ) ENT: normal ENT inspection, TMs normal, pharynx normal Neck: supple, no adenopathy, no JVD Respiratory/Chest: lungs clear, no respiratory distress Cardiovascular: regular rate, rhythm, no gallop, no murmur Abdomen: normal bowel sounds, non tender, soft Extremities: non-tender, no pedal edema, + pertinent finding (5/5 motor strength in all 4 extremitities; right DIP minimally erythematous, no effusion, no tenderness to palpation, normal passive range of motion, normal flexion, difficulty with complete extension without pain) 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 (See eye exam above for exception), alert, normal mood/affect, oriented x 3 Skin: normal color, warm/dry, no rash Lymphatic: no adenopathy Laboratory Results Last 24 Hours Test 07/23/16 06:44 White Blood Count 9.82 K/uL Red Blood Count 4.43 M/uL Hemoglobin 13.1 g/dL Hematocrit 37.9 % Mean Corpuscular Volume 85.6 fL Mean Corpuscular Hemoglobin 29.6 pg Mean Corpuscular Hemoglobin Concent 34.6 g/dl RDW Standard Deviation 42.4 fL RDW Coefficient of Variation 13.5 % Platelet Count 169 K/uL Mean Platelet Volume 10.0 fL Sodium Level 142 mmol/L Potassium Level 3.8 mmol/L Chloride Level 108 mmol/L Carbon Dioxide Level 27 mmol/L Anion Gap 7.0 mmol/L Blood Urea Nitrogen 12 mg/dl Creatinine 1.00 mg/dl Est Creatinine Clear Calc Drug Dose 85.2 ml/min Estimated GFR () 93.7 Estimated GFR (Non- 80.9 BUN/Creatinine Ratio 12.3 Random Glucose 142 mg/dl Calcium Level 8.1 mg/dl Assessment and Plan 60-year-old male, with 3 days of new onset vertigo. Currently he is on day 2 of his admission, the states feeling better overall. However he does state having some leftward double vision, and examination is reviewed positive for left lateral nystagmus. MRI was done, noting an old stroke, but not coinciding with patient's current symptoms. 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, and the left high convexity Given persistence of dizziness and ocular findings, we'll repeat MRI this afternoon to monitor for evolutional changes - No arrhythmias on telemetry; normal sinus rhythm - Echocardiogram grossly normal; EF 65-70% with grade 1 diastolic dysfunction - Carotid artery Doppler was remarkable for atherosclerosis, but no significant hemodynamic compromise - The patient benefit from starting a low-dose aspirin daily - Continue atorvastatin - Continue meclizine when necessary - At this point with persistence of symptoms, as well as neurological findings of nystagmus, I'll consult neurology for their recommendations Right Fourth Finger Injury - Occurred greater than 3 weeks ago - X-ray shows a nondisplaced was fracture, but does not coincide with the location of where is having limited motion - No further action at this time as right hand function is intact Herpes simplex - Patient on suppressive therapy at home - Tympanic membranes were clear and there is no evidence that symptoms have been caused by viral breakout in the in her ear - Continue acyclovir prophylactic dosing Hyperlipidemia - Continue atorvastatin DVT prophylaxis - Continue enoxaparin Disposition - Patient continues to require overnight stay for decrease in by mouth intake - Continue physical therapy on inpatient basis - Ultimately anticipate discharge home Reviewed: Pt Seen/Exam by Me History dizziness better but not resolved having left side double vision Constitutional: denies: fever Respiratory: negative: short of breath Cardiovascular: denies chest pain General Appearance: no apparent distress Eye Exam: bilateral eye lateral nystagmus Respiratory: lungs clear, no respiratory distress Cardiovascular: regular rate, rhythm Gastrointestinal: normal bowel sounds, non tender, soft Neurologic/Psychiatric: alert, oriented x 3, other (left lateral diplopia) Skin Characteristics: warm/dry Assessment/Plan I have reviewed the medical record and performed a history and physical examination of this patient today. I have discussed the case with Dr. Liu. The above note reflects my findings, conclusions, and recommendations. Discussed with neurology - Neurology consult Repeat MRI. follow
[2016-07-23 15:20] VITALS: BP 157/87; PULSE 72; TEMP 36.8; O2SAT 97
[2016-07-23] MEDS ORDERED: LORAZEPAM 2 MG/ML 1 ML VIAL IV STA (16:13)
[2016-07-23] MEDS ORDERED: PROMETHAZINE HCL INJ 12.5 MG in SODIUM CHLORIDE 0.9% 50ML 50 ML IV ONE (16:30)
[2016-07-23] MEDS ORDERED: LORAZEPAM 2 MG/ML 1 ML VIAL ONE (19:22)
[2016-07-23] MEDS ORDERED: GADAVIST IV PRN (20:45)
[2016-07-23 21:21] VITALS: BP 174/91; PULSE 58; TEMP 36.4; O2SAT 94
[2016-07-23] MEDS: ATORVASTATIN 10 MG TAB PO SCH (21:27)
--- NOTE | 2016-07-23 21:39 | DIAGNOSTIC IMAGING REPORT ---
Brain MRI WITH AND WITHOUT CONTRAST HISTORY: left nystagmus and diplopia; rule-out infarction TECHNIQUE: Multiplanar multisequence MRI of the brain was performed both before and after the intravenous administration of contrast. COMPARISON STUDY: None. FINDINGS: No areas of restricted diffusion to suggest acute infarction. There is a partially empty sella. The remaining midline structures are intact. Small focal area of T2 hyperintensity seen within the left high convexity. 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 This extends to the cortex and subcortical white matter.. There is no mass, hematoma, midline shift. The ventricles are normal in size. The paranasal sinuses are clear. There are few opacified left mastoid air cells and opacified medial right mastoid air cell. No abnormal enhancement. IMPRESSION: 1. No change from the prior study. No acute intracranial abnormality. 2. Small focal area of T2 hyperintensity within the left high convexity which favors an old small infarct. Electronically signed by: Everett Valladares M.D. 07/23/2016 9:37 PM Dictated Date/Time: 07/23/2016 9:31 PM
[2016-07-23 23:11] VITALS: BP 157/90; PULSE 59; TEMP 36.7; O2SAT 96
[2016-07-24 03:25] VITALS: BP 133/80; PULSE 61; TEMP 36.5; O2SAT 95
[2016-07-24] MEDS: D5NSS + 20MEQ KCL 1,000 ML IV SCH (07:30)
[2016-07-24] MEDS: ENOXAPARIN 40 MG/0.4 ML SYR SC SCH (07:33)
[2016-07-24 07:44] LABS: HEMATOCRIT 35.2 % (42-52); MEAN CELL VOLUME 86.1 fL (80-100); MEAN CORPUSCULAR HEMOGLOBIN 30.6 pg (25-34); MEAN CORPUSCULAR HGB CONC 35.5 g/dl (32-36); MEAN PLATELET VOLUME 9.9 fL (7.4-10.4); PLATELET COUNT 145 K/uL (130-400); RED BLOOD COUNT 4.09 M/uL (4.7-6.1); WHITE BLOOD COUNT 8.56 K/uL (4.8-10.8)
[2016-07-24 07:45] VITALS: BP 137/77; PULSE 50; TEMP 36.8; O2SAT 95
[2016-07-24 08:16] LABS: BUN/CREATININE RATIO 14.5 (10-20); CREATININE 0.93 mg/dl (0.60-1.40); POTASSIUM 3.9 mmol/L (3.5-5.1)
[2016-07-24] MEDS ORDERED: ASPIRIN 81 MG ECTAB PO SCH (09:00)
[2016-07-24] MEDS ORDERED: NURSING VERBAL MED ORDER ONE (10:30)
--- NOTE | 2016-07-24 10:51 | Neurology Consultation ---
Neurology Consultation Date of Consultation: Jul 24, 2016. Attending Physician: Lenora Delacruz M.D. Primary Care Physician: Shayne Pedroza D.O. Reason for Consultation: Vertigo History of Present Illness Source: patient, hospital records This is a 60-year-old male who presents with severe vertigo symptoms. Patient reports that he is never had this before. Reports that it started on Tuesday with brief episode of buzzing in his head and dizziness for about 30 seconds. Worsened on Tuesday with severe spinning and several episodes of nausea and vomiting. Patient reports that over Tuesday and today he seems to be improving. He has had physical therapy with vestibular retraining which has seemed to help. He does have a history of decreased hearing and sometimes wears hearing aids. He denies any tinnitus. He does report that his mother had episodes of positional vertigo. Patient denies any clotting disorders, stroke, or heart attacks. During this episode he denied any focal weakness or numbness. No changes with his speech or vision other than his vision getting a little blurry. He did note that when looking to the left his vision seemed to be more blurry. He reports that his walking is better today than it was when he was initially admitted. Repeat MRI of the brain report and images reviewed by myself. There is no acute strokes. There is one small area of T2 hyperintensity and the high convexity on the left that has the appearance of a small lacunar infarct which is chronic. No other signs of stroke or small vessel disease. Ultrasound of the carotids were unremarkable Echocardiogram showed some mild diastolic dysfunction but otherwise was unremarkable Total cholesterol 123, LDL 66, HDL 50, triglycerides 35, hemoglobin A1c 5.5 Past Medical/Surgical History Medical Problems: (1) Intractable vomiting Status: Acute (2) Nystagmus Status: Acute (3) Vertigo Status: Acute Dyslipidemia BPH Sensory neuronal hearing loss Family History Family history of a mother who had a stroke in her early 80s. Mother also had benign positional vertigo Social History Patient works as a teacher. Independent in his activities of daily living. No tobacco. Occasional alcohol use. No illegal drug use Alcohol Use: occasionally Drug Use: none Marital Status: Housing Status: lives with family Occupation Status: employed Allergies Coded Allergies: No Known Allergies (Unverified , 07/22/16) Current Inpatient Medications Current Inpatient Medications Medications (Trade) Dose Ordered Sig/Lisa Route Start Time Stop Time Status Last Admin Dose Admin Enoxaparin Sodium (Lovenox Inj) 40 mg Q24H SC 07/22/16 09:00 08/21/16 08:59 07/24/16 07:33 40 MG Acetaminophen (Tylenol Tab) 650 mg Q4H PRN PO 07/22/16 01:45 08/21/16 01:44 Al Hydrox/Mg Hydrox/Simethicone (Maalox Max Susp) 15 ml Q4H PRN PO 07/22/16 01:45 08/21/16 01:44 Magnesium Hydroxide (Milk Of Magnesia Susp) 30 ml Q12H PRN PO 07/22/16 01:45 08/21/16 01:44 Ondansetron HCl (Zofran Inj) 4 mg Q6H PRN IV 07/22/16 01:45 08/21/16 01:44 07/22/16 08:06 4 MG Nitroglycerin (Nitrostat Tab) 0.4 mg UD PRN SL 07/22/16 01:45 08/21/16 01:44 Polyethylene (Miralax Powder Packet) 17 gm DAILY PRN PO 07/22/16 01:45 08/21/16 01:44 Atorvastatin Calcium (Lipitor Tab) 10 mg HS PO 07/22/16 21:00 08/21/16 20:59 07/23/16 21:27 10 MG Meclizine HCl 25 mg 25 mg TID PRN PO 07/22/16 02:00 08/21/16 01:59 07/23/16 08:01 25 MG Promethazine HCl/ Sodium Chloride (Phenergan Inj/ Nss 50ml) 51 ml @ 204 mls/hr Q6H PRN IV 07/22/16 09:00 08/21/16 08:59 07/22/16 10:32 204 MLS/HR Aspirin (Ecotrin Tab) 81 mg QAM PO 07/24/16 09:00 08/23/16 08:59 07/24/16 07:32 81 MG Prednisone (PredniSONE TAB) 50 mg DAILY PO 07/23/16 15:00 07/25/16 14:59 07/24/16 07:32 50 MG Gadobutrol (Gadavist) 8.5 mmol UD PRN IV 07/23/16 20:45 07/27/16 20:44 Review of Systems Complete review systems otherwise negative except for the above noted in history of present illness Physical Exam Vital Signs (Past 24 Hrs): Date Time Temp Pulse Resp B/P Pulse Ox O2 Delivery O2 Flow Rate FiO2 07/24/16 07:45 36.8 50 18 137/77 95 Room Air 07/24/16 04:00 Room Air 07/24/16 03:25 36.5 61 18 133/80 95 Room Air 07/23/16 23:59 Room Air 07/23/16 23:11 36.7 59 19 157/90 96 Room Air 07/23/16 21:21 36.4 58 20 174/91 94 Room Air 07/23/16 20:00 Room Air 07/23/16 16:00 Room Air 07/23/16 15:20 36.8 72 16 157/87 97 Room Air 07/23/16 12:47 36.8 61 20 144/83 98 Room Air 07/23/16 12:00 Room Air Gen.: Patient is alert and sitting in bed, in no acute distress. HEENT: Normocephalic /atraumatic, no scleral icterus Heart: Regular rate and rhythm Extremities: No gross deformities or rashes noted Neurological examination: Mental status: Patient is alert and oriented x3. Attention and concentration normal for the situation. Good fund of knowledge. Able to give her own history. Speech is fluent without any dysarthria or aphasia noted Cranial nerve: Funduscopic examination was unremarkable. No papilledema. Pupils equally round and reactive to light. Extraocular muscles intact without nystagmus (no blurred or double vision on exam this morning). No facial asymmetry noted. Facial sensation intact. Tongue is midline. Good palatal elevation. Good shoulder shrug bilaterally. Hearing grossly intact to voice. Strength: 5/5 both proximal and distally in all extremities. There is no arm drift. Tone is normal. Sensation: Grossly intact to light touch in all extremities. Deep tendon reflexes: +1 in bilateral biceps, brachioradialis and patellar. Toes were downgoing to plantar stimulation Coordination: Patient had good finger to nose without dysmetria and good heel-to -grewal without ataxia Station within the bed was normal Laboratory Results Past 24 Hours: 07/24/16 06:51 07/24/16 06:51 Test 07/24/16 06:51 Red Blood Count 4.09 M/uL (4.7-6.1) Mean Corpuscular Volume 86.1 fL (80-100) Mean Corpuscular Hemoglobin 30.6 pg (25-34) Mean Corpuscular Hemoglobin Concent 35.5 g/dl (32-36) RDW Standard Deviation 41.9 fL (36.4-46.3) RDW Coefficient of Variation 13.4 % (11.5-14.5) Mean Platelet Volume 9.9 fL (7.4-10.4) Anion Gap 7.0 mmol/L (3-11) Est Creatinine Clear Calc Drug Dose 91.6 ml/min Estimated GFR () 102.3 Estimated GFR (Non- 88.3 BUN/Creatinine Ratio 14.5 (10-20) Calcium Level 8.0 mg/dl (8.5-10.1) Imaging As noted above in history of present illness Impression This is a 60-year-old male with improving peripheral vertigo symptoms. Neurological examination is normal this morning. Patient does have signs of a small lacunar infarct on MRI, likely unrelated to his present symptoms. Known stroke risk factors include dyslipidemia. Plan No additional neurological workup needed in the hospital at this time. No neurological contraindications to discharge. No specific activity restrictions. Can advance his activities as tolerated. Recommend aspirin 81 mg daily for secondary stroke prevention In the future if the patient's symptoms worsen or return, can consider repeat physical therapy for vestibular retraining, [id number] meclizine, Valium or scopolamine patch if needed Stroke risk factor modifications and recommendations: Blood pressure recommendations 130/80-110/70 Total cholesterol goal 100- 200 and LDL goal less than 100 (at goal) Hemoglobin A1c goal less than 7 (at goal) Encourage cardiovascular exercise at least 3 times a week for 30 minutes. Thank you for letting me participate in this patient's care. If there is any questions or concerns, feel free to call/page me
[2016-07-24] MEDS ORDERED: ASPI-435 PO (11:10)
[2016-07-24] MEDS ORDERED: MECL-91 PO (11:10)
--- NOTE | 2016-07-24 11:12 | Discharge Instructions ---
Discharge Instructions Date of Service Jul 24, 2016. Admission Reason for Admission: Dizziness Discharge Discharge Diagnosis / Problem: Vertigo Discharge Goals Goal(s): Improve disease control Activity Recommendations Activity Limitations: resume your previous activity . Instructions / Follow-Up Instructions / Follow-Up Follow up with family physician in one week Current Hospital Diet Patient's current hospital diet: AHA Diet (Heart Healthy) Discharge Diet Recommended Diet: AHA Diet (Heart Healthy) Pending Studies Studies pending at discharge: no Laboratory Results Hemoglobin A1c Test 07/22/16 05:57 Range/Units Estimated Average Glucose 111 mg/dl Hemoglobin A1c 5.5 4.5-5.6 % Lipid Panel Test 07/22/16 05:57 Range/Units Triglycerides Level 35 0-150 mg/dl Cholesterol Level 123 0-200 mg/dl HDL Cholesterol 50 mg/dl Cholesterol/HDL Ratio 2.5 LDL Cholesterol, Calculated 66 mg/dl Medical Emergencies . Who to Call and When: Medical Emergencies: If at any time you feel your situation is an emergency, please call 911 immediately. . Non-Emergent Contact Non-Emergency issues call your: Primary Care Provider . . "Provider Documentation" section prepared by Lenora Delacruz. VTE Core Measure Inpt VTE Proph given/why not?: Enoxaparin (Lovenox)SQ
[2016-07-24 11:26] VITALS: BP 137/77; PULSE 50; TEMP 36.8; O2SAT 95
--- NOTE | 2016-07-24 16:10 | Discharge Summary ---
Discharge Summary Date of Service Jul 24, 2016. Discharge Summary Admission Date: Jul 22, 2016 at 01:43 Discharge Date: Jul 24, 2016 Discharge Disposition: Home Principal Diagnosis: Peripheral vertigo Consultations: Neurology -[facility] [place] Medication Reconciliation New Medications: Aspirin (Aspirin 81) 81 Mg Tab 1 TAB PO DAILY for 30 Days Meclizine HCl (Meclizine 25) 25 Mg Tab 25 MG PO TID PRN for Dizziness or Vertigo, #14 TAB Continued Medications: Acyclovir (Zovirax) 200 Mg Cap 200 MG PO DAILY, CAP Atorvastatin (Lipitor) 10 Mg Tab 10 MG PO HS, TAB Discharge Exam Last Resulted CBC 07/24/16 06:51 Last Resulted BMP 07/24/16 06:51 Review of Systems: Constitutional: No fever Respiratory: No shortness of breath Cardiovascular: No chest pain Neurologic: + problem reported (dizziness mostly resolved. ambulating well) Physical Exam: General Appearance: no apparent distress Respiratory/Chest: lungs clear, no respiratory distress Cardiovascular: regular rate, rhythm Neurologic/Psychiatric: cover creaser II-XII nml as tested, no motor/sensory deficits , alert, normal mood/affect, oriented x 3 Skin: warm/dry Hospital Course 60 y/o M here with dizziness/vertigo - -CT head on admission negative. -Was very nausea and vomited. Received IVF. MRI brain checked - Negative for acute stroke. Did show old small lacunar infarct - likely not related to presenting symptoms. Started on aspirin -Given prednisone. -Also complained of double vision. Neurology consulted. Repeat MRI done - negative. Symptoms mostly resolved. -Vertigo peripheral - home on meclizine. Stroke risk factor modifications and recommendations: Blood pressure recommendations 130/80-110/70 Total cholesterol goal 100- 200 and LDL goal less than 100 (at goal) Hemoglobin A1c goal less than 7 (at goal) Encourage cardiovascular exercise at least 3 times a week for 30 minutes. Total Time Spent: Greater than 30 minutes This includes examination of the patient, discharge planning, medication reconciliation, and communication with other providers. Discharge Instructions Please refer to the electronic Patient Visit Report (Discharge Instructions) for additional information. Additional Copies To Shayne Pedroza D.O.
== END 2016-07-24 11:55 | disposition home or self-care (01) | DRG 149 ==
LOC: ENRESERVDT → ENRESERVTM → C.EDB 23:12 → C.2T 07-22 01:43
PROVIDERS: ADMIT Hospitalist; ATTEND Family Medicine
DX: H81.399 Other peripheral vertigo, unspecified ear (principal); E78.5 Hyperlipidemia, unspecified; Z82.3 Family history of stroke; B00.9 Herpesviral infection, unspecified; S62.664A Nondisplaced fracture of distal phalanx of right ring finger, initial encounter for closed fracture; X58.XXXA Exposure to other specified factors, initial encounter; Z79.82 Long term (current) use of aspirin; E87.6 Hypokalemia; Z86.73 Personal history of transient ischemic attack (TIA), and cerebral infarction without residual deficits